=== PATIENT | female | born 1990 | race African-American/Black ===

== ENCOUNTER 2018-03-29 00:14 | Inpatient (IN) ==
[2018-03-29] MEDS ORDERED: Naloxone Inj 0.4 MG/ML Vial IV.PUSH PRN ×2 (01:21→16:14)
[2018-03-29] MEDS ORDERED: fentaNYL Citrate Inj 100 MCG/2 ML Ampul IV.PUSH PRN ×2 (01:21)
[2018-03-29] MEDS ORDERED: Sodium Chlor 0.9% Inj 500 ML IV.SIG ONE (01:21)
[2018-03-29] MEDS ORDERED: Oxytocin 30 Units/500ml Premix 30 UNITS/500 ML BAG IV.SIG ONE (01:21)
[2018-03-29] MEDS ORDERED: Sod Chloride 0.9% Inj 1,000 ML IV.CONT SCH (01:30)
[2018-03-29] MEDS ORDERED: Citric Acid/Sodium Citrate Liq 15 ML UDC PO SCH (01:30)
--- NOTE | 2018-03-29 01:32 | P.HPOB ---
History of Present Illness Service: Patient is 27-year-old white female 38 weeks goes to the [facility] and presents with rupture the membranes spontaneously this evening. Also ciro every 2 minutes and she says they hurt but she is not exhibiting any sign really pain. heart rate tracing is reactive contractions as above, and amni sure is positive Primary Care Physician: UNKNOWN Dr. Villar History of Present Illness: 27-year-old black female at 38 weeks spontaneous rupture membranes in early labor. Weeks Gestation:: 38 Para: 1 : 0 - Inpatient Certification If this patient has been admitted as an Inpatient: I certify that the inpatient services were ordered in accordance with Medicare regulations governing the order. This includes certification that hospital inpatient services are reasonable and necessary and in the case of services not specified as inpatient-only under 42 CFR 419.22(n), that they are appropriately provided as inpatient services in accordance to with the 2-midnight benchmark under 43 CFR 412.3(e) Estimated Total Length of Stay (Days): 3 Plans for Post Hospital Care: Home Review of Systems Constitutional: Denies anorexia, Denies body ache(s), Denies chills, Denies daytime sleepiness, Denies excessive sweating, Denies fatigue, Denies fever(s), Denies headache(s), Denies increased appetite, Denies lack of energy, Denies malaise, Denies night sweats, Denies weakness, Denies weight gain, Denies weight loss, Denies other Cardiovascular: Denies bluish discoloration of hand/feet, Denies chest pain, Denies chest pain at rest, Denies chest pain with activity, Denies excessive sweating, Denies fainting, Denies fast heart rate, Denies foot swelling, Denies generalized swelling, Denies irregular heart rhythm, Denies leg pain with activity, Denies leg sores, Denies leg swelling, Denies lightheadedness, Denies radiating jaw, neck or arm pain, Denies rapid, pounding, or irregular heartbeat , Denies shortness of breath, Denies shortness of breath with activity, Denies shortness of breath when lying down, Denies shortness of breath causing sudden awakening, Denies slow heart rate, Denies other Respiratory: Denies change in phlegm color, Denies chest congestion, Denies cough, Denies coughing up blood, Denies excessive phlegm production, Denies pain on inspiration, Denies pain with cough, Denies shortness of breath, Denies shortness of breath with activity, Denies snoring, Denies stridor, Denies wheezing, Denies other Gastrointestinal: Denies abdominal pain, Denies belching, Denies black, tarry stools, Denies bloating, Denies bright, red blood in stools, Denies change in bowel habits, Denies constant urge to pass stool, Denies change in stools, Denies coffee ground vomit, Denies constipation, Denies cramping, Denies difficulty swallowing, Denies excessive passing of gas, Denies feeling full early, Denies heartburn, Denies incontinent of stools, Denies loose stools, Denies nausea, Denies pain with swallowing, Denies vomiting, Denies vomiting blood, Denies other Genitourinary: Denies abnormal periods, Denies abnormal vaginal bleeding, Denies absent period, Denies bleeding between periods, Denies blood in urine, Denies difficulty starting urination, Denies difficulty urinating, Denies dribbling after urination, Denies frequent nighttime urination, Denies genital itching, Denies genital lesions, Denies heavy periods, Denies hot flashes, Denies light periods, Denies nipple discharge, Denies painful intercourse, Denies painful periods, Denies painful urination, Denies pelvic pain, Denies prolapse symptoms, Denies sexual problems, Denies side pain, Denies urinary incontinence, Denies urinary urgency, Denies vaginal discharge, Denies vaginal dryness, Denies vaginal odor, Denies vaginal itching, Denies other Neurologic: Denies abnormal hearing, Denies abnormal movements, Denies abnormal speech, Denies abnormal walking, Denies behavioral changes, Denies burning sensations, Denies confusion, Denies dizziness, Denies fainting, Denies frequent falls, Denies headache(s), Denies lack of coordination, Denies localized weakness, Denies loss of vision, Denies memory loss, Denies numbness, Denies other visual disturbances, Denies radiating pain, Denies restless legs, Denies convulsions, Denies seizure-like activity, Denies sensory deficit, Denies tingling, Denies tingling/numbness/burning sensations, Denies tremor(s), Denies unsteadiness, Denies weakness, Denies other PMFSH - Tobacco History Smoking Status: Never smoker Medications and Allergies Active Medications: Active Medications Citric Acid/Sodium Citrate (Sod Citrate/Citric Acid Liq) 30 ml PO [employer] [facility] Stop: 04/02/18 01:29 Fentanyl Citrate (Fentanyl Inj) 50 mcg IV.PUSH Q1H PRN PRN Reason: Pain Scale 3 - 5 Fentanyl Citrate (Fentanyl Inj) 100 mcg IV.PUSH Q1H PRN PRN Reason: PAIN SCALE 6 TO 10 Lactated Ringer's (Lr 1000 Ml Inj) 1,000 mls @ 125 mls/hr IV.CONT .Q8H [place] Sodium Chloride (Ns Inj) 1,000 mls @ 100 mls/hr IV.CONT .Q10H [place] Lactated Ringer's (Lr 1000 Ml Inj) 3,000 mls @ 3,000 mls/hr IV.SIG UNSCH ONE Stop: 03/29/18 02:20 Lidocaine HCl (Xylocaine 1% Inj) 0.1 ml INFILTRATN PRN PRN PRN Reason: For IV start Stop: 04/01/18 01:20 Lidocaine HCl (Xylocaine 1% Inj) 10 ml INFILTRATN PRN PRN PRN Reason: For episiotomy repair Stop: 03/31/18 01:20 Mineral Oil (Muri-Lube Oil) 10 ml TOPICAL PRN PRN PRN Reason: PRN perineal massage Naloxone HCl (Narcan Inj) 0.1 mg IV.PUSH Q2M PRN PRN Reason: for opiate reversal Sodium Chloride (Ns Flush) 2 ml IV.FLUSH PRN PRN PRN Reason: FLUSH AFTER USING IV ACCESS Sodium Chloride (Ns Flush) 2 ml IV.FLUSH BID [facility] Allergies Allergy/AdvReac Type Severity Reaction Status Date / Time No Known Allergies Allergy Unverified 03/29/18 00:47 Home Medications Medication Instructions Recorded Confirmed Type PNV cmb#[id number]-ferrous fumarate-FA 1 tab PO DAILY 03/29/18 03/29/18 History [] vitamin D3-folic acid 1 tab PO DAILY 03/29/18 03/29/18 History Exam Vital signs: Vital Signs 03/29/18 00:49 03/29/18 00:55 Temperature 97.8 F Pulse Rate 81 Respiratory Rate 18 Blood Pressure 126/83 Intake & Output 03/28/18 03/28/18 03/29/18 06:59 18:59 06:59 Weight 104.326 kg - Constitutional no acute distress - Routine HEENT Exam Head: Present: normocephalic, atraumatic Eye: Present: PERRL - Routine Neck Exam Present: supple, full ROM - Routine Respiratory Exam Present: decreased breath sounds - Routine Cardiovascular Exam Present: RRR - Routine Abdominal Exam Present: soft - Routine Exam External: Present: normal urethra appearance Comments: Patient's pelvic exam reveals a cervix that is 1/50/-3 and very posterior in the pelvis and vertex Caprini VTE Risk Assessment Caprini VTE Risk Assessment: No/Low Risk (score <= 1) Caprini Risk Assessment Model: Point Value = 1 Point Value = 2 Point Value = 3 Point Value = 5 Age 41-60 Minor surgery BMI > 25 kg/m2 Swollen legs Varicose veins or History of unexplained or recurrent spontaneous Oral contraceptives or hormone replacement Sepsis (< 1 month) Serious lung disease, including pneumonia (< 1 month) Abnormal pulmonary function Acute myocardial infarction Congestive heart failure (< 1 month) History of inflammatory bowel disease Medical patient at bed rest Age 61-74 Arthroscopic surgery Major open surgery (> 45 min) Laparoscopic surgery (> 45 min) Malignancy Confined to bed (> 72 hours) Immobilizing plaster cast Central venous access Age >= 75 History of VTE Family history of VTE Factor V Leiden Prothrombin [id number] Lupus anticoagulant Anticardiolipin antibodies Elevated serum homocysteine Heparin-induced thrombocytopenia Other congenital or acquired thrombophilia Stroke (< 1 month) Elective arthroplasty Hip, pelvis, or leg fracture Acute spinal cord injury (< 1 month) Prophylaxis Regimen: Total Risk Factor Score Risk Level Prophylaxis Regimen 0-1 Low Early ambulation 2 Moderate Order ONE of the following: *Sequential Compression Device (SCD) *Heparin 5000 units SQ BID 3-4 Higher Order ONE of the following medications: *Heparin 5000 units SQ TID *Enoxaparin/Lovenox 40 mg SQ daily (WT < 150 kg, CrCl > 30 mL/min) *Enoxaparin/Lovenox 30 mg SQ daily (WT < 150 kg, CrCl > 10-29 mL/min) *Enoxaparin/Lovenox 30 mg SQ BID (WT < 150 kg, CrCl > 30 mL/min) AND/OR *Sequential Compression Device (SCD) 5 or more Highest Order ONE of the following medications: *Heparin 5000 units SQ TID (Preferred with Epidurals) *Enoxaparin/Lovenox 40 mg SQ daily (WT < 150 kg, CrCl > 30 mL/min) *Enoxaparin/Lovenox 30 mg SQ daily (WT < 150 kg, CrCl > 10-29 mL/min) *Enoxaparin/Lovenox 30 mg SQ BID (WT < 150 kg, CrCl > 30 mL/min) AND *Sequential Compression Device (SCD) Assessment and Plan - Diagnosis (1) Spontaneous rupture of amniotic membranes Status: Acute Plan: Plan admit patient to labor and delivery, augment labor as needed, anticipate vaginal delivery
[2018-03-29 02:20] LABS: Baso % (Auto) 0.4 % (0.0-2.0); Eos % (Auto) 0.3 % (0.0-4.0); Hematocrit 32.3 % (35.0-46.0); Hemoglobin 10.3 gm/dL (11.6-15.3); Lymph # (Auto) 1.8 th/mm3 (1.0-4.8); Lymph % (Auto) 24.5 % (9.0-44.0); Mean Corpuscular HGB Conc 31.8 % (32.0-36.0); Mean Corpuscular Hemoglobin 26.1 pg (27.0-34.0); Mean Corpuscular Volume 82.1 fL (80.0-100.0); Mean Platelet Volume 10.8 fL (7.0-11.0); Mono # (Auto) 0.5 th/mm3 (0.0-0.9); Neut % (Auto) 67.8 % (16.0-70.0); Platelet Count 183 th/mm3 (150-450); Red Blood Count 3.93 mil/mm3 (4.00-5.30); Red Cell Distribution Width 14.8 % (11.6-17.2); White Blood Count 7.4 th/mm3 (4.0-11.0)
[2018-03-29 02:53] LABS: Amphetamine Urine With Conf Neg (Neg); Benzodiazepine Urine With Conf Neg (Neg)
[2018-03-29 04:03] LABS: Hepatitits B Surface Antigen Nonreactive (Nonreactive)
[2018-03-29 04:22] LABS: Bilirubin,Urine Negative (Negative); Clarity,Urine Cloudy (Clear); Color,Urine Yellow (Yellw/Straw); Glucose,Urine (UA) Negative (Negative); Leukocyte Esterase,Urine Moderate (Negative); Mucus,Urine Few /lpf (Occasional); Nitrite,Urine Negative (Negative); Specific Gravity,Urine 1.016 (1.002-1.035); Squamous Epithelial Cell,Urine 4 /hpf (0-5)
[2018-03-29 04:23] LABS: Bacteria,Urine Few /hpf
[2018-03-29] MEDS ORDERED: fentaNYL 2MCG-Bupiv 0.125% Epi 150 ML EPIDURAL ONE ×2 (06:19→07:45)
--- NOTE | 2018-03-29 08:20 | P.OBLABOR ---
Subjective Interval history: 27 yo sbf G1 at 38 2/7 EGA with [facility] at 11:30 pm last night to [facility] around midnight and admitted. PNC with Dr. Benito. GBS reported as negative. Not on antibiotics yet. Got epidural at 4 am and comfortable. No KEENE, blurred vision, nausea or vomiting. Here with her parents. FOB not involved. Works in Home [employer] in [place]. No GDM, HTN, PTL male Objective Vital Signs: Vital Signs - 8 hr 03/29/18 00:49 03/29/18 00:55 03/29/18 04:42 Temperature 97.8 F 99.0 F Pulse Rate 81 Respiratory Rate 18 19 Blood Pressure 126/83 03/29/18 04:43 03/29/18 06:25 03/29/18 06:27 Temperature Pulse Rate 92 H 107 H 141 H Respiratory Rate Blood Pressure 121/72 146/95 H 03/29/18 06:31 03/29/18 06:35 03/29/18 06:40 Temperature Pulse Rate 128 H 99 H 105 H Respiratory Rate Blood Pressure 132/83 137/85 03/29/18 06:41 03/29/18 06:45 03/29/18 06:46 Temperature Pulse Rate 92 H 102 H 91 H Respiratory Rate Blood Pressure 114/72 123/68 03/29/18 06:50 03/29/18 06:55 03/29/18 07:00 Temperature Pulse Rate 95 H 90 88 Respiratory Rate Blood Pressure 119/73 124/79 122/74 03/29/18 07:12 03/29/18 07:41 03/29/18 07:46 Temperature 98.2 F Pulse Rate 73 82 Respiratory Rate 16 16 Blood Pressure 132/74 128/79 Objective: Pelvic Exam: /-2 not well applied and asynclitic EFW 8 pounds arch is narrow FHT's: 140s with no accels or decels category 1 pitocin at 12 Weeks Gestation: 38 Patient Started Active Labor: Yes Active Labor Start Date: 03/29/18 Medical Induction of Labor: No Artificial Rupture of Membrane: No Assessment and Plan - Plan contractions have slacked off with epidural begin pitocin antibiotic when 18 hours post SROM hopeful
[2018-03-29] MEDS ORDERED: Oxytocin 30 Units/500ml Premix 30 UNITS/500 ML BAG IV.SIG PRN (09:18)
[2018-03-29] MEDS ORDERED: Lidocaine PF 1% Inj 30 ML Vial ONE (14:37)
[2018-03-29] MEDS ORDERED: Measles/Mumps/Rubella Vaccine Inj 0.5 ML Vial SQ ONE (16:00)
[2018-03-29] MEDS ORDERED: Diphtheria/Tetanus/Pertussis Vaccine Inj 0.5 ML Syringe IM ONE (16:00)
[2018-03-29] MEDS ORDERED: Bisacodyl 10 MG Supp RECTAL PRN (16:14)
[2018-03-29] MEDS ORDERED: Ibuprofen 400 MG Tablet PO PRN (16:14)
[2018-03-29] MEDS ORDERED: Witch Hazel 50%/Glyderin 12.5% 40 Pad Jar RECTAL PRN (16:14)
[2018-03-29] MEDS ORDERED: Acetaminophen 325 MG Tablet PO PRN (16:14)
[2018-03-29] MEDS ORDERED: Zolpidem Tartrate 5 MG Tablet PO PRN (16:14)
[2018-03-29] MEDS ORDERED: Benzocaine 20% Top Spray 60 ML Can TOPICAL PRN (16:14)
[2018-03-29] MEDS ORDERED: Oxytocin 30 Units/500ml Premix 30 UNITS/500 ML BAG IV.CONT SCH (16:15)
--- NOTE | 2018-03-29 16:17 | P.OBDELI ---
Weeks Gestation: 38 Patient Started Active Labor: Yes Medical Induction of Labor: No Artificial Rupture of Membrane: No Anesthesia: Epidural Episiotomy: none Vaginal Delivery: Normal Presentation: Occiput anterior Nuchal Cord: None Delayed Cord Clamping (45 sec): Yes Placenta: Spontaneous delivery, Intact, 3 vessel cord Laceration: None Estimated blood loss (mL): 200 Infant: Male Infant Delivery Date: 03/29/18 Infant Delivery Time: 16:16 Weight: 3200 kg score (1 min): 8 score (5 min): 9
[2018-03-29] MEDS ORDERED: Senna/Docusate Sodium 8.6/50 MG Tablet PO SCH (21:00)
[2018-03-29 22:54] LABS: Hepatitis A IgM Antibody Nonreactive (Nonreactive)
--- NOTE | 2018-03-30 07:55 | P.PNOB ---
Subjective Post day: 1 (doing well, resting, no complaints) Objective Vital Signs/I&O: Vital Signs 03/29/18 08:10 03/29/18 08:16 03/29/18 09:00 Temperature 97.9 F Pulse Rate 79 85 Respiratory Rate 18 Blood Pressure 132/77 121/79 03/29/18 09:01 03/29/18 09:30 03/29/18 09:46 Temperature Pulse Rate 88 109 H 86 Respiratory Rate Blood Pressure 127/71 141/82 H 129/86 03/29/18 09:58 03/29/18 10:16 03/29/18 10:29 Temperature Pulse Rate 83 Respiratory Rate 18 18 Blood Pressure 127/79 03/29/18 10:54 03/29/18 11:00 03/29/18 11:01 Temperature 98.1 F Pulse Rate 102 H 91 H Respiratory Rate 18 Blood Pressure 110/65 120/58 L 03/29/18 11:16 03/29/18 11:30 03/29/18 12:00 Temperature Pulse Rate 90 81 103 H Respiratory Rate 18 Blood Pressure 116/65 122/85 111/73 03/29/18 12:30 03/29/18 13:00 03/29/18 13:30 Temperature 98.6 F Pulse Rate 94 H 95 H 99 H Respiratory Rate 20 20 Blood Pressure 135/85 136/87 138/83 03/29/18 13:31 03/29/18 13:54 03/29/18 14:00 Temperature Pulse Rate 91 H 94 H 99 H Respiratory Rate 20 Blood Pressure 134/65 89/73 L 114/68 03/29/18 14:30 03/29/18 14:45 03/29/18 15:15 Temperature 98.0 F Pulse Rate 97 H 100 H 85 Respiratory Rate 20 20 Blood Pressure 132/78 116/73 107/82 03/29/18 15:30 03/29/18 15:36 03/29/18 16:01 Temperature Pulse Rate 78 75 Respiratory Rate 22 Blood Pressure 120/68 130/92 H 03/29/18 16:16 03/29/18 16:19 03/29/18 16:31 Temperature Pulse Rate 96 H 90 Respiratory Rate 20 Blood Pressure 136/77 142/85 H 03/29/18 16:40 03/29/18 16:55 03/29/18 17:31 Temperature 98.5 F Pulse Rate 88 73 Respiratory Rate 20 20 Blood Pressure 134/89 143/77 H 03/29/18 17:46 03/29/18 18:01 03/29/18 20:00 Temperature 98.3 F Pulse Rate 99 H 98 H 97 H Respiratory Rate 17 Blood Pressure 126/77 123/74 105/61 03/29/18 20:23 Temperature 98.3 F Pulse Rate 97 H Respiratory Rate 17 Blood Pressure 105/61 Intake & Output 03/29/18 03/30/18 03/30/18 18:59 06:59 18:59 Intake Total 3500 / 3500 Balance 3500 / 3500 Intake: IV 3500 / 3500 LR 1000 mL Inj 1,000 ML @ 125 3000 / 3000 mls/hr IV.CONT .Q8H [facility] Rx#: [id number] Pitocin 30 Units/NS 500 ml 500 / 500 Premix 30 units In 500 ml @ 1 MILLIUNIT/MIN 1 mls/hr IV.SIG TITRATE PRN Rx#:[id number] Result Diagrams: 03/29/18 01:51 Objective Remarks: GENERAL: Well-nourished, well-developed patient. CARDIOVASCULAR: Regular rate and rhythm without murmurs, gallops, or rubs. RESPIRATORY: Breath sounds equal bilaterally. No accessory muscle use. ABDOMEN/GI: Abdomen soft, non-tender. Fundus: Firm, non-tender at umbilicus. GENITOURINARY: Light to moderate bleeding. EXTREMITIES: No cyanosis or edema, non-tender, without signs of DVT. Medications and IVs: Active Medications Acetaminophen (Tylenol) 650 mg PO Q4H PRN PRN Reason: PAIN SCALE 1 TO 2 Al Hydroxide/Mg Hydroxide (Milk Of Magnesia Liq) 30 ml PO Q12H PRN PRN Reason: Mild Constipation Benzocaine (Americaine 20% [place]) 1 spray TOPICAL Q4H PRN PRN Reason: For Perineum Discomfort Bisacodyl (Dulcolax Supp) 10 mg RECTAL DAILY PRN PRN Reason: SEVERE CONSITIPATION Citric Acid/Sodium Citrate (Sod Citrate/Citric Acid Liq) 30 ml PO [employer] MACHINE [facility] Stop: 04/02/18 01:29 Last Admin: 03/29/18 02:10 Dose: 30 ml Fentanyl Citrate (Fentanyl Inj) 50 mcg IV.PUSH Q1H PRN PRN Reason: Pain Scale 3 - 5 Fentanyl Citrate (Fentanyl Inj) 100 mcg IV.PUSH Q1H PRN PRN Reason: PAIN SCALE 6 TO 10 Last Admin: 03/29/18 04:53 Dose: 100 mcg Lactated Ringer's (Lr 1000 Ml Inj) 1,000 mls @ 125 mls/hr IV.CONT .Q8H [facility] Last Infusion: 03/29/18 16:57 Dose: Infused Sodium Chloride (Ns Inj) 1,000 mls @ 100 mls/hr IV.CONT .Q10H [facility] Oxytocin (Pitocin 30 Units/Ns 500 Ml Premix) 30 units in 500 mls @ 1 mls/hr IV.SIG TITRATE PRN; Protocol PRN Reason: For induction of labor Last Titration: 03/29/18 16:56 Dose: Infused Lactulose (Lactulose Liq) 30 ml PO DAILY PRN PRN Reason: SEVERE CONSITIPATION Lidocaine HCl (Xylocaine 1% Inj) 0.1 ml INFILTRATN PRN PRN PRN Reason: For IV start Stop: 04/01/18 01:20 Lidocaine HCl (Xylocaine 1% Inj) 10 ml INFILTRATN PRN PRN PRN Reason: For episiotomy repair Stop: 03/31/18 01:20 Mineral Oil (Muri-Lube Oil) 10 ml TOPICAL PRN PRN PRN Reason: PRN perineal massage Naloxone HCl (Narcan Inj) 0.1 mg IV.PUSH Q2M PRN PRN Reason: for opiate reversal Naloxone HCl (Narcan Inj) 0.1 mg IV.PUSH Q2M PRN PRN Reason: for opiate reversal Ondansetron HCl (Zofran Odt) 4 mg PO Q6H PRN PRN Reason: NAUSEA OR VOMITING Senna/Docusate Sodium (Mansi-Colace) 1 tab PO BID [facility] Sennosides (Senokot) 17.2 mg PO Q12H PRN PRN Reason: Moderate Constipation Sodium Chloride (Ns Flush) 2 ml IV.FLUSH PRN PRN PRN Reason: FLUSH AFTER USING IV ACCESS Sodium Chloride (Ns Flush) 2 ml IV.FLUSH BID [facility] Last Admin: 03/29/18 18:00 Dose: 2 ml Sodium Chloride (Ns Flush) 2 ml IV.FLUSH BID [facility] Sodium Chloride (Ns Flush) 2 ml IV.FLUSH PRN PRN PRN Reason: FLUSH AFTER USING IV ACCESS Witch Marzena/Glycerin (Tucks Pads) 1 applicatio RECTAL QID PRN PRN Reason: HEMORRHOIDS Zolpidem Tartrate (Ambien) 5 mg PO HS PRN PRN Reason: SLEEP Assessment and Plan - Diagnosis (1) (spontaneous vaginal delivery) Code(s): O80 - Encounter for full-term uncomplicated delivery Status: Acute - Plan PPD#1; routine care, support , plan circ prior to d/c; anticipate d/c to home 03/31/18 Discharge Planning: routine
--- NOTE | 2018-03-31 10:05 | P.PNOB ---
Subjective Post day: 2 Interval history: doing well, meeting all discharge criteria Objective Vital Signs/I&O: Vital Signs 03/30/18 20:00 03/31/18 08:00 Temperature 98.2 F 98.1 F Pulse Rate 95 H 72 Respiratory Rate 18 20 Blood Pressure 109/64 119/81 Result Diagrams: 03/29/18 01:51 Objective Remarks: GENERAL: Well-nourished, well-developed patient. CARDIOVASCULAR: Regular rate and rhythm without murmurs, gallops, or rubs. RESPIRATORY: Breath sounds equal bilaterally. No accessory muscle use. ABDOMEN/GI: Abdomen soft, non-tender. Fundus: Firm, non-tender at umbilicus. GENITOURINARY: Light bleeding. EXTREMITIES: No cyanosis or edema, non-tender, without signs of DVT. Medications and IVs: Active Medications Acetaminophen (Tylenol) 650 mg PO Q4H PRN PRN Reason: PAIN SCALE 1 TO 2 Al Hydroxide/Mg Hydroxide (Milk Of Magnesia Liq) 30 ml PO Q12H PRN PRN Reason: Mild Constipation Benzocaine (Americaine 20% Top [place]) 1 spray TOPICAL Q4H PRN PRN Reason: For Perineum Discomfort Bisacodyl (Dulcolax Supp) 10 mg RECTAL DAILY PRN PRN Reason: SEVERE CONSITIPATION Citric Acid/Sodium Citrate (Sod Citrate/Citric Acid Liq) 30 ml PO TRAIN [employer]ER [facility] Stop: 04/02/18 01:29 Last Admin: 03/29/18 02:10 Dose: 30 ml Fentanyl Citrate (Fentanyl Inj) 50 mcg IV.PUSH Q1H PRN PRN Reason: Pain Scale 3 - 5 Fentanyl Citrate (Fentanyl Inj) 100 mcg IV.PUSH Q1H PRN PRN Reason: PAIN SCALE 6 TO 10 Last Admin: 03/29/18 04:53 Dose: 100 mcg Lactated Ringer's (Lr 1000 Ml Inj) 1,000 mls @ 125 mls/hr IV.CONT .Q8H [facility] Last Infusion: 03/29/18 16:57 Dose: Infused Sodium Chloride (Ns Inj) 1,000 mls @ 100 mls/hr IV.CONT .Q10H [facility] Oxytocin (Pitocin 30 Units/Ns 500 Ml Premix) 30 units in 500 mls @ 1 mls/hr IV.SIG TITRATE PRN; Protocol PRN Reason: For induction of labor Last Titration: 03/29/18 16:56 Dose: Infused Lactulose (Lactulose Liq) 30 ml PO DAILY PRN PRN Reason: SEVERE CONSITIPATION Lidocaine HCl (Xylocaine 1% Inj) 0.1 ml INFILTRATN PRN PRN PRN Reason: For IV start Stop: 04/01/18 01:20 Mineral Oil (Muri-Lube Oil) 10 ml TOPICAL PRN PRN PRN Reason: PRN perineal massage Naloxone HCl (Narcan Inj) 0.1 mg IV.PUSH Q2M PRN PRN Reason: for opiate reversal Naloxone HCl (Narcan Inj) 0.1 mg IV.PUSH Q2M PRN PRN Reason: for opiate reversal Ondansetron HCl (Zofran Odt) 4 mg PO Q6H PRN PRN Reason: NAUSEA OR VOMITING Senna/Docusate Sodium (Mansi-Colace) 1 tab PO BID [facility] Last Admin: 03/31/18 08:37 Dose: 1 tab Sennosides (Senokot) 17.2 mg PO Q12H PRN PRN Reason: Moderate Constipation Sodium Chloride (Ns Flush) 2 ml IV.FLUSH PRN PRN PRN Reason: FLUSH AFTER USING IV ACCESS Sodium Chloride (Ns Flush) 2 ml IV.FLUSH BID [facility] Last Admin: 03/29/18 18:00 Dose: 2 ml Sodium Chloride (Ns Flush) 2 ml IV.FLUSH BID [place] Sodium Chloride (Ns Flush) 2 ml IV.FLUSH PRN PRN PRN Reason: FLUSH AFTER USING IV ACCESS Witch Marzena/Glycerin (Tucks Pads) 1 applicatio RECTAL QID PRN PRN Reason: HEMORRHOIDS Zolpidem Tartrate (Ambien) 5 mg PO HS PRN PRN Reason: SLEEP Assessment and Plan - Diagnosis (1) (spontaneous vaginal delivery) Code(s): O80 - Encounter for full-term uncomplicated delivery Status: Acute - Plan PPD#2; routine care, support , infant circ this AM; d/c to home 03/31 Discharge Planning: routine
== END 2018-03-31 14:08 | disposition home or self-care (01) ==
LOC: HOBED 00:14 → H2E 01:26 → H1EA 18:28
PROVIDERS: ADMIT Obstetrics & Gynecology; ATTEND Obstetrics & Gynecology